=== PATIENT | female | born 1970 | race Caucasian/White ===

== ENCOUNTER 2024-05-29 08:01 | Outpatient (CLI) | payer BC, SELFPAY ==
--- NOTE | 2024-05-29 08:14 | XR_ITS ---
WS: [id number] XR lumbar spine min 4V [id number] REASON FOR EXAM: LOW BACK PAIN FINDINGS: Normal lumbar spine curvatures. No significant vertebral body abnormality Intervertebral disc spaces are intact and relatively well preserved. No significant listhesis. XR/XR lumbar spine min 4V [id number] IMPRESSION: No significant abnormality.
== END 2024-05-29 08:02 | disposition home or self-care (01) ==
LOC: RAD 08:06
PROVIDERS: PCP Nurse Practitioner Family; Visit Provider Nurse Practitioner Family
DX: M54.50 Low back pain, unspecified (principal)
CPT/HCPCS: 72110